=== PATIENT | male | born 1950 | race Caucasian/White ===

== ENCOUNTER → 2019-08-23 | Outpatient (CLI) | payer OTHER | LOC: LAB FS 12:36 | DX: R97.20 Elevated prostate specific antigen [PSA] (principal) | CPT/HCPCS: 36415; 84153; 84154 ==

== ENCOUNTER → 2020-04-28 | Outpatient (CLI) | payer OTHER ==
--- NOTE | 2020-04-28 13:11 | Diagnostic Imaging Report ---
PROCEDURE: CT abdomen and pelvis without contrast. TECHNIQUE: Multiple contiguous axial images were obtained through the abdomen and pelvis without the use of intravenous contrast. Auto Exposure Controls were utilized during the CT exam to meet ALARA standards for radiation dose reduction. INDICATION: Abnormal renal function. COMPARISON: No prior studies are available for comparison. FINDINGS: The lung bases are clear. The liver and gallbladder are unremarkable. No discrete liver mass is detected. There is no biliary ductal dilatation. The pancreas and spleen are unremarkable. No adrenal mass is detected. The right kidney does contain a 4.1 cm cyst in the upper pole. The left kidney is unremarkable. No calculi are detected. No hydronephrosis is identified. The ureters are unremarkable. The aorta is heavily calcified but nonaneurysmal. The small and large bowel loops are of normal caliber. There is diverticulosis of the sigmoid but no evidence of acute diverticulitis. There is no free fluid detected. The bladder evaluation is somewhat limited due to beam hardening artifact through the pelvis from the patient's right hip prosthesis. The prostate does appear to be enlarged. No abdominal or pelvic lymphadenopathy is detected. IMPRESSION: 1. Right renal cyst. 2. No evidence of urinary tract calculi or obstruction. 3. Uncomplicated diverticulosis. 4. Prostatomegaly. 5. No acute feature is identified. Dictated by: Dictated on workstation # [id number]
== END ==
LOC: RAD FS 12:38
PROVIDERS: ATTEND Urology
DX: N28.1 Cyst of kidney, acquired (principal); K57.30 Diverticulosis of large intestine without perforation or abscess without bleeding; N40.1 Benign prostatic hyperplasia with lower urinary tract symptoms; R94.4 Abnormal results of kidney function studies
CPT/HCPCS: 74176

== ENCOUNTER → 2020-05-16 | Outpatient (CLI) | payer OTHER ==
--- NOTE | 2020-05-16 14:31 | Diagnostic Imaging Report ---
INDICATION: Prostate carcinoma. Patient was administered 25.4 mCi technetium 99m MDP intravenously and whole-body imaging was performed after a three-hour delay. No prior studies are available for comparison. There is normal uptake of activity by the axial and appendicular skeleton. There is uptake by both kidneys with excretion into the urinary bladder. No suspicious focus is identified to suggest osseous metastatic disease. There is minimal uptake in the upper cervical spine on the right, likely degenerative facet disease. IMPRESSION: No scintigraphic evidence of osseous metastatic disease. Dictated by: Dictated on workstation # [id number]
== END ==
LOC: CARD 10:01
PROVIDERS: ATTEND Urology
DX: C61 Malignant neoplasm of prostate (principal)
CPT/HCPCS: 78306; A9503

== ENCOUNTER 2020-07-08 06:22 | Day surgery (SDC) | payer OTHER ==
[2020-07-08] VITALS (10 sets, daily range): BP systolic 131–162; BP diastolic 75–94
[~2020-07-08] VITALS: Ht 185.5 cm; Wt 109.3 kg
[~2020-07-08 06:22] MED LIST: AMLO10TA7 PO; ASPI-999 PO; BENZ-36 PO; FENO145T26 PO; LISI10TA2 PO; MTP100TCR PO; MULT-1136 PO; OMEP20TA7 PO; PRAV40TA2 PO; PSYL0.5211 PO; TRIA1CAP4 PO
[2020-07-08] MEDS ORDERED: LACTATED RINGERS 1,000 ML IV PRN (06:29)
[2020-07-08] MEDS ORDERED: cefTRIAXone FOR IV USE 1,000 MG in WATER (STERILE) FOR INJECTION 10 ML IV ONE (06:30)
--- NOTE | 2020-07-08 07:09 | Progress Note-Pre Operative ---
Pre-Operative Progress Note H&P Reviewed The H&P was reviewed, patient examined and no changes noted. Date Seen by Provider: Jul 08, 2020 Time Seen by Provider: 07:09 Date H&P Reviewed: Jul 08, 2020 Time H&P Reviewed: 07:09 Pre-Operative Diagnosis: CA PROSTATE SOY JOSEPH MD Jul 08, 2020 07:09
--- NOTE | 2020-07-08 07:21 | Progress Note-Post Operative ---
Post-Operative Progess Note Surgeon (s)/[employer] Inspector (s) Surgeon SOY JOSEPH MD [employer] Inspector: NONE Pre-Operative Diagnosis CA PROSTATE Post-Operative Diagnosis SAME Procedure & Operative Findings Date of Procedure 07/08/20 Procedure Performed/Findings SPACE OAR PLACEMENT Anesthesia Type GENERAL Estimated Blood Loss Estimated blood loss (mL): NONE Specimens/Packing Specimens Removed NONE Packing: NONE SOY JOSEPH MD Jul 08, 2020 07:21
--- NOTE | 2020-07-08 07:22 | Discharge Inst-Urology ---
Discharge Inst-Urology Reconcile Patient Problems Problems Reviewed?: Yes Final Diagnosis CA PROSTATE Patient Instructions/Follow Up Plan/Assessment/Instructions Please make appointment to been seen in office in 2 weeks. Rest for 48 hours In 48 hours, if no bleeding, may resume ASA Increase oral fluids for 48 hours and then as needed. Diet as tolerated. If questions or concerns contact your physician Or seek help at emergency department. SOY JOSEPH MD Jul 08, 2020 07:22
[2020-07-08] MEDS ORDERED: cefTRIAXone 1,000 MG IV (ROCEPHIN) VIAL ONE ×2 (08:42→08:43)
[2020-07-08] MEDS ORDERED: WATER (STERILE) FOR INJECTION 10 ML ONE (08:43)
[2020-07-08 08:52] LABS: HEMOGLOBIN 13.6 g/dL (13.3-17.7); WHITE BLOOD COUNT 4.6 10^3/uL (4.3-11.0)
[2020-07-08] MEDS ORDERED: CIPR-225 PO (08:52)
[2020-07-08 09:32] LABS: BILIRUBIN,TOTAL 0.4 MG/DL (0.1-1.0); CREATININE SERUM 1.49 MG/DL (0.60-1.30); TOTAL PROTEIN 7.1 GM/DL (6.4-8.2)
[2020-07-08] MEDS ORDERED: morphine INJ 10 MG/ML 1ML (SYR OR VIAL) IVP ONE (10:30)
[2020-07-08] MEDS ORDERED: MEPERIDINE (DEMEROL) INJ 50 MG/ML IVP ONE (10:30)
[2020-07-08] MEDS ORDERED: fentaNYL INJECTION 100 MCG/2 ML AMP IVP ONE (10:30)
[2020-07-08] MEDS ORDERED: proPOfol 200 MG/20 ML (DIPRIVAN) VIAL IV ONE (10:32)
[2020-07-08] MEDS ORDERED: MIDAZOLAM 2 MG/2 ML (VERSED) VIAL ONE (10:32)
[2020-07-08] MEDS ORDERED: LIDOCAINE PF 2% 5 ML (XYLOCAINE) VIAL ONE (10:32)
[2020-07-08] MEDS ORDERED: SEVOFLURANE (ULTANE) 15 ML INHAL SOLN ONE ×2 (10:32→10:57)
[2020-07-08] MEDS ORDERED: ONDANSETRON 4 MG/2 ML (SDV) Z0FRAN ONE (10:32)
[2020-07-08] MEDS ORDERED: fentaNYL INJECTION 100 MCG/2 ML AMP ONE (10:35)
== END 2020-07-08 13:05 | disposition home or self-care (01) ==
LOC: SDC 06:22
PROVIDERS: ATTEND Urology
DX: C61 Malignant neoplasm of prostate (principal); Z11.2 Encounter for screening for other bacterial diseases; I10 Essential (primary) hypertension; E78.00 Pure hypercholesterolemia, unspecified; N52.9 Male erectile dysfunction, unspecified; M19.91 Primary osteoarthritis, unspecified site; Z96.651 Presence of right artificial knee joint; Z95.5 Presence of coronary angioplasty implant and graft; K21.9 Gastro-esophageal reflux disease without esophagitis; Z79.82 Long term (current) use of aspirin; Z79.899 Other long term (current) drug therapy
CPT/HCPCS: 36415; 80053; 85027; 87081

== ENCOUNTER → 2020-08-12 | Outpatient (CLI) | payer OTHER ==
[~2020-08-12] MED LIST changes: +AMLO-251 PO; -AMLO10TA7 PO; +CIPR-225 PO
[2020-08-12 10:28] LABS: CLARITY,URINE CLEAR; COLOR,URINE YELLOW
[2020-08-12 10:29] LABS: BACTERIA,URINE NEGATIVE /HPF; BILIRUBIN,URINE NEGATIVE (NEGATIVE); GLUCOSE, URINE (UA) NEGATIVE (NEGATIVE); KETONES,URINE NEGATIVE (NEGATIVE); LEUKOCYTE ESTERASE ,URINE NEGATIVE (NEGATIVE); NITRITE,URINE NEGATIVE (NEGATIVE); PROTEIN,URINE NEGATIVE (NEGATIVE); RBC,URINE 0-2 /HPF; SQUAMOUS EPITHELIAL CELL,UR 0-2 /HPF; WBC,URINE 0-2 /HPF
[2020-08-12 11:00] LABS: ALBUMIN 4.4 GM/DL (3.2-4.5); CALCIUM 9.5 MG/DL (8.5-10.1); CREATININE SERUM 1.44 MG/DL (0.60-1.30); MAGNESIUM 1.7 MG/DL (1.6-2.4)
[2020-08-12 11:42] LABS: BASOPHILS % (AUTO) 1 % (0-10); EOSINOPHILS % (AUTO) 5 % (0-10); HEMATOCRIT 40 % (40-54); HEMOGLOBIN 13.9 G/DL (13.3-17.7); LYMPHOCYTES % (AUTO) 27 % (12-44); MEAN CORPUSCULAR HEMOGLOBIN 32 PG (25-34); MEAN CORPUSCULAR HGB CONC 35 G/DL (32-36); MEAN CORPUSCULAR VOLUME 92 FL (80-99); MEAN PLATELET VOLUME 11.1 FL (7.4-10.4); MONOCYTES % (AUTO) 18 % (0-12); NEUTROPHILS # (AUTO) 2.2 X 10^3 (1.8-7.8); NEUTROPHILS % (AUTO) 49 % (42-75); PLATELET COUNT 155 10^3/uL (130-400); WHITE BLOOD COUNT 4.5 10^3/uL (4.3-11.0)
[2020-08-12 11:43] LABS: BAND NEUTROPHILS 8 %; BASOPHILS # (AUTO) 0.1 10^3/uL (0.0-0.1); BASOPHILS % (MANUAL) 1 %; EOSINOPHILS # (AUTO) 0.2 10^3/uL (0.0-0.3); EOSINOPHILS % (MANUAL) 4 %; LYMPHOCYTES # (AUTO) 1.2 X 10^3 (1.0-4.0); LYMPHOCYTES % (MANUAL) 15 %; MONOCYTES # (AUTO) 0.8 X 10^3 (0.0-1.0); MONOCYTES % (MANUAL) 16 %; NEUTROPHILS % (MANUAL) 43 %
[2020-08-12 11:44] LABS: ATYPICAL LYMPHOCYTES 13 %; RBC MORPH NORMAL
[2020-08-12 15:02] LABS: PHOSPHORUS 2.4 MG/DL (2.3-4.7)
[2020-08-12 15:18] LABS: URINE CREATININE FOR RATIO 55 MG/DL (30-125)
[2020-08-12 15:19] LABS: URINE PROTEIN FOR RATIO ONLY < 6 MG/DL (6-12)
== END ==
LOC: LAB FS 09:21
PROVIDERS: ATTEND Internal Medicine
DX: N17.9 Acute kidney failure, unspecified (principal)
CPT/HCPCS: 36415; 80069; 81000; 82306; 82570; 83735; 83970; 84156; 85007; 85027

== ENCOUNTER → 2020-09-08 | Outpatient (RCR) | payer OTHER | END | disposition home or self-care (01) | LOC: ONC 06-10 14:27 | PROVIDERS: ATTEND Radiology Radiation Oncology | DX: C61 Malignant neoplasm of prostate (principal); K57.90 Diverticulosis of intestine, part unspecified, without perforation or abscess without bleeding; N28.1 Cyst of kidney, acquired; E78.00 Pure hypercholesterolemia, unspecified; I10 Essential (primary) hypertension; Z87.442 Personal history of urinary calculi; F10.20 Alcohol dependence, uncomplicated; I25.10 Atherosclerotic heart disease of native coronary artery without angina pectoris; M17.0 Bilateral primary osteoarthritis of knee; M19.042 Primary osteoarthritis, left hand; M19.041 Primary osteoarthritis, right hand; Z87.891 Personal history of nicotine dependence; Z79.899 Other long term (current) drug therapy | CPT/HCPCS: 77300; 77301; 77334; 77336; 77338; 77385; 99204 ==

== ENCOUNTER 2020-10-01 07:49 | Outpatient (RCR) | payer OTHER | END 2020-11-13 12:00 | disposition home or self-care (01) | LOC: ONC 07:49 | PROVIDERS: ATTEND Radiology Radiation Oncology | DX: C61 Malignant neoplasm of prostate (principal); K57.90 Diverticulosis of intestine, part unspecified, without perforation or abscess without bleeding; N28.1 Cyst of kidney, acquired; E78.00 Pure hypercholesterolemia, unspecified; I10 Essential (primary) hypertension; I25.10 Atherosclerotic heart disease of native coronary artery without angina pectoris; M17.0 Bilateral primary osteoarthritis of knee; M19.042 Primary osteoarthritis, left hand; M19.041 Primary osteoarthritis, right hand; F10.20 Alcohol dependence, uncomplicated; Z87.442 Personal history of urinary calculi; Z87.891 Personal history of nicotine dependence; Z79.899 Other long term (current) drug therapy | CPT/HCPCS: 77336; 77385 ==

== ENCOUNTER 2020-11-13 13:19 | Outpatient (RCR) | payer OTHER ==
[~2020-11-13 13:19] MED LIST changes: -LISI10TA2 PO; +LISI10TA25 PO
== END 2021-02-11 | disposition home or self-care (01) ==
LOC: ONC 13:19
PROVIDERS: ATTEND Radiology Radiation Oncology
DX: C61 Malignant neoplasm of prostate (principal); K57.90 Diverticulosis of intestine, part unspecified, without perforation or abscess without bleeding; N28.1 Cyst of kidney, acquired; E78.00 Pure hypercholesterolemia, unspecified; I10 Essential (primary) hypertension; I25.10 Atherosclerotic heart disease of native coronary artery without angina pectoris; M17.0 Bilateral primary osteoarthritis of knee; M19.042 Primary osteoarthritis, left hand; M19.041 Primary osteoarthritis, right hand; F10.20 Alcohol dependence, uncomplicated; Z87.442 Personal history of urinary calculi; Z87.891 Personal history of nicotine dependence; Z79.899 Other long term (current) drug therapy
CPT/HCPCS: 99213